=== PATIENT | female | born 1995 | race Caucasian/White ===

== ENCOUNTER → 2017-09-05 | Outpatient (CLI) | payer OTHER ==
--- NOTE | 2017-09-05 08:09 | US ---
EXAMINATION TYPE: US abdomen complete DATE OF EXAM: 09/05/2017 COMPARISON: NONE CLINICAL HISTORY: 22-year-old female R10.11 Right Upper Quad Pain. Pt states RUQ pain x 3-4 weeks TECHNIQUE: Multiple sonographic images of the abdomen are obtained. FINDINGS: [employer]ATOR NOTES: Large pt body habitus, somewhat difficult exam Liver Length: 15.5 cm Gallbladder Wall: 0.3 cm CBD: 0.3 cm Spleen: 11.0 cm Right Kidney: 11.1 x 4.6 x 5.3 cm Left Kidney: 11.1 x 4.2 x 5.3 cm Pancreas: wnl, tail obscured by overlying bowel gas Liver: Slight increased echogenicity. No focal lesion. Gallbladder: No abnormal distention, wall thickening, pericholecystic fluid, or shadowing calculi. Evidence for sonographic Wright's sign: Yes CBD: wnl Spleen: wnl Right Kidney: No hydronephrosis Left Kidney: Upper pole cyst= 1.3 x 1.4 x 1.3 cm/there may be a couple adjacent 4 mm echogenic foci. No hydronephrosis. Upper IVC: wnl Abd Aorta: wnl The liver is homogenous. IMPRESSION: 1. Suspect mild fatty infiltration of the liver. 2. No sonographic findings of cholelithiasis or acute cholecystitis. However, sonographic Wright sign is reported positive. This could be from referred pain. If further imaging evaluation of the gallbla dder is desired, HIDA scan with ejection fraction can be performed. 3. A couple 4 mm echogenic foci of abnormal left kidney could represent prominent vascular reflection s or tiny nonobstructive calculi.
== END | disposition home or self-care (01) ==
LOC: RADUSWWP 07:38
PROVIDERS: ATTEND Family Medicine
DX: R93.422 Abnormal radiologic findings on diagnostic imaging of left kidney (principal); R10.11 Right upper quadrant pain
CPT/HCPCS: 76700

== ENCOUNTER → 2017-09-18 | Outpatient (CLI) | payer OTHER ==
--- NOTE | 2017-09-18 16:33 | NM ---
EXAMINATION TYPE: NM hepatobiliary w EF DATE OF EXAM: 09/18/2017 COMPARISON: Ultrasound abdomen 09/05/2017 HISTORY: Right upper quadrant pain TECHNIQUE: After the intravenous administration of 5.26 mCi Tc 99m Mebrofenin hepatobiliary scintigra phy is performed. Immediate images post injection. FINDINGS: There is satisfactory initial accumulation of tracer by the liver. The gallbladder is visualized wit hin 8 minutes. The small bowel activity is noted within 38 minutes. At one hour 8 ounces of oral en sure plus is given to mimic CCK and gallbladder ejection fraction is calculated at 74 %, in the philippe l range. Therefore there is no scintigraphic evidence of cystic or common bile duct obstruction to s uggest acute cholecystitis or gallbladder dyskinesia. IMPRESSION: Exam is within normal limits.
== END | disposition home or self-care (01) ==
LOC: RADNMMAIN 13:06
PROVIDERS: ATTEND Family Medicine
DX: R10.11 Right upper quadrant pain (principal)
CPT/HCPCS: 78226; A9537

== ENCOUNTER → 2018-05-10 | Outpatient (CLI) | payer OTHER ==
[2018-05-10 14:57] LABS: ALT 39 U/L (9-52); AST 35 U/L (14-36); Albumin 4.3 g/dL (3.5-5.0); Alkaline Phosphatase 80 U/L (38-126); Amylase 61 U/L (30-110); Anion Gap 10 mmol/L; Blood Urea Nitrogen 9 mg/dL (7-17); Calcium 9.6 mg/dL (8.4-10.2); Carbon Dioxide 24 mmol/L (22-30); Chloride 106 mmol/L (98-107); Glucose 99 mg/dL (74-99); Lipase 97 U/L (23-300); Sodium 140 mmol/L (137-145); Total Bilirubin 0.8 mg/dL (0.2-1.3); Total Protein 8.2 g/dL (6.3-8.2)
[2018-05-10 15:27] LABS: HCT 38.8 % (34.0-46.0); HGB 13.6 gm/dL (11.4-16.0); MCH 28.7 pg (25.0-35.0); MCHC 35.2 g/dL (31.0-37.0); MCV 81.6 fL (80.0-100.0); Mean Platelet Volume 7.3; Platelet Count 287 k/uL (150-450); RBC 4.75 m/uL (3.80-5.40); RDW 13.3 % (11.5-15.5)
[2018-05-10 15:37] LABS: Eosinophils # (M) 0.12 k/uL (0-0.7); Lymphocytes # (M) 2.28 k/uL (1.0-4.8); Monocytes # (M) 0.96 k/uL (0-1.0); Myelocytes # (M) 0.12 k/uL (0); Myelocytes % 1 %; Neutrophils # (M) 8.64 k/uL (1.3-7.7); Neutrophils % (M) 72 %; Nucleated Red Blood Cells 0 /100 WBC (0-0); Total Cells Counted 200
[2018-05-10 15:39] LABS: Anisocytosis (M) Present; Poikilocytosis (M) Present; Polychromasia Present
--- NOTE | 2018-05-10 15:48 | CT ---
EXAMINATION TYPE: CT abdomen pelvis w con DATE OF EXAM: 05/10/2018 HISTORY: abdominal pain, rectal bleed [address] DLP: 2357.6mGycm Automated Exposure Control for Dose Reduction was Utilized. CONTRAST: CT scan of the abdomen and pelvis is performed with IV Contrast, patient injected with 100 mL of Isov ue 300. COMPARISON: Complete abdominal ultrasound September 05, 2017 FINDINGS: LUNG BASES: No significant abnormality is appreciated. LIVER/GB: No significant abnormality is appreciated. PANCREAS: No significant abnormality is seen. SPLEEN: No significant abnormality is seen. ADRENALS: No significant abnormality is seen. KIDNEYS: There is simple appearing 1.7 cm cyst posteriorly upper pole level left kidney. There is sym metric cortical medullary uptake and excretion from both kidneys without evidence of hydronephrosis b ilaterally. BOWEL: Small hiatal hernia is present. Oral contrast extends to rectum. No suspicious small or large bowel dilatation is present. Mild wall thickening in the colon near splenic flexure is identified. UTERUS/ADNEXA: Anteverted uterus is seen. Metallic IUD is noted low in position . Clinical correlatio n and follow-up advised. Both ovaries are seen without suspicious enlargement LYMPH NODES: No greater than 1cm abdominal or pelvic lymph nodes are appreciated. OSSEOUS STRUCTURES: No significant abnormality is seen. OTHER: No significant additional abnormality is seen. IMPRESSION: 1. Perhaps mild mid colitis otherwise unremarkable study. 2. Low positioning of IUD, clinical correlation and nonemergent follow-up advised.
== END | disposition home or self-care (01) ==
LOC: RADCTMAIN 13:51
PROVIDERS: ATTEND Family Medicine
DX: K92.1 Melena (principal); R10.2 Pelvic and perineal pain; Z97.5 Presence of (intrauterine) contraceptive device
CPT/HCPCS: 80053; 82150; 83690; 85025; 74177; Q9967

== ENCOUNTER 2018-05-31 09:41 | Day surgery (SDC) | payer OTHER ==
[2018-05-29 13:58] VITALS: BMI 45.8
[~2018-05-31 09:41] MED LIST: LACTATED RINGERS 1,000 ML IV SCH
[2018-05-31 10:03] VITALS: TEMP 99
[2018-05-31] MEDS ORDERED: LIDOCAINE 1% 20 ML VIAL (10MG/ML) FOR IV START INTRADERMA ONE (10:09)
[2018-05-31] MEDS ORDERED: PROPOFOL 10 MG/ML 20 ML VIAL IV ONE (10:56)
--- NOTE | 2018-05-31 10:59 | P.GSHP ---
History of Present Illness H&P Date: 05/31/18 Chief Complaint: GI bleed This is a 22-year-old female referred from Dr. Landin. Patient presents today for colonoscopy. She's had issues with GI bleed. Past Medical History Past Medical History: GERD/Reflux, GI Bleed Additional Past Medical History / Comment(s): rectal bleeding, abdominal pain, "CT scan showed ulcerative colitis",hiatal hernia, History of Any Multi-Drug Resistant Organisms: None Reported Past Surgical History: No Surgical Hx Reported Additional Past Surgical History / Comment(s): wisdom teeth Past Anesthesia/Blood Transfusion Reactions: No Reported Reaction Smoking Status: Never smoker - Past Family History Mother Family Medical History: No Reported History Medications and Allergies Home Medications Medication Instructions Recorded Confirmed Type No Known Home Medications 05/29/18 05/31/18 History Allergies Allergy/AdvReac Type Severity Reaction Status Date / Time No Known Allergies Allergy Verified 05/29/18 13:51 Surgical - Exam Vital Signs Temp Pulse Resp BP Pulse Ox 99.0 F 90 16 144/82 97 05/31/18 09:52 05/31/18 09:52 05/31/18 09:52 05/31/18 09:52 05/31/18 09:52 - General well developed, no distress - Eyes PERRL - ENT normal pinna - Neck no masses - Respiratory normal expansion - Cardiovascular Rhythm: regular - Abdomen Abdomen: soft, non tender Assessment and Plan Assessment: GI Bleed. We'll perform colonoscopy.
--- NOTE | 2018-05-31 11:10 | P.OP ---
Date of Procedure: 05/31/18 Preoperative Diagnosis: GI bleed Postoperative Diagnosis: Normal colon Procedure(s) Performed: Colonoscopy Anesthesia: MAC Surgeon: Mendoza Fowler Pathology: none sent Condition: stable Disposition: PACU Description of Procedure: PROCEDURE: The patient was placed on the endoscopy table in the lateral position. Digital rectal examination was performed which revealed no abnormalities. . Flexible colonoscope was then placed in the patient's anus and passed throughout the entire colon. The ileocecal valve was visualized. The cecum, ascending, transverse, descending and sigmoid colon were normal. The rectum was normal as well. There were no masses, polyps or diverticula noted in the entire colon. There is no evidence of GI bleed on the colonoscopy. I was unable to determine the source of her previous GI bleed.
[2018-05-31 11:31] VITALS: RESP 18
[2018-05-31 11:33] VITALS: BP 107/56; PULSE 91
== END 2018-05-31 12:00 | disposition home or self-care (01) ==
LOC: ORWHC2ENDO 09:41
PROVIDERS: ATTEND Surgery
DX: K92.2 Gastrointestinal hemorrhage, unspecified (principal); K21.9 Gastro-esophageal reflux disease without esophagitis
CPT/HCPCS: 84703; 45378; J2704